=== PATIENT | female | born 1950 | race American Indian/Alaskan Native ===

== ENCOUNTER 2019-02-15 09:34 | Day surgery (SDC) | payer MEDICARE ==
[~2019-02-15 09:34] MED LIST: TETRACAINE 0.5% OS PRN
[2019-02-15] MEDS: VIGAMOX OS SCH ×3 (10:10→10:22)
[2019-02-15] MEDS: AK-Dilate OS SCH ×3 (10:10→10:22)
[2019-02-15] MEDS: MYDRIACYL OS SCH ×3 (10:10→10:22)
--- NOTE | 2019-02-15 10:21 | Anesthesia Consultation ---
Anesthesia Consult and Med Hx Date of service: 02/15/19 - Airway Anesthetic Teeth Evaluation: Dentures ROM Head & Neck: Adequate Mental/Hyoid Distance: Adequate Mallampati Class: Class II Intubation Access Assessment: Probably Good - Pulmonary Exam CTA: Yes - Cardiac Exam Cardiac Exam: RRR - Pre-Operative Health Status ASA Pre-Surgery Classification: ASA3 Proposed Anesthetic Plan: MAC - Pulmonary Hx Smoking: Yes (Former) Hx Respiratory Symptoms: No Hx Sleep Apnea: No - Cardiovascular System Hx Hypertension: Yes (took antihypertensive this morning) Hx Heart Attack/AMI: Yes (in ) Hx Percutaneous Transluminal Coronary Angioplasty (PTCA): No Hx Cardia Arrhythmia: No - Central Nervous System Hx Seizures: No CVA: No Hx Psychiatric Problems: No - Gastrointestinal Hx Gastroesophageal Reflux Disease: No - Endocrine Hx Renal Disease: Yes (CKD3) Hx Liver Disease: No Hx Non-Insulin Dependent Diabetes: Yes Hx Thyroid Disease: No - Other Systems Hx Obesity: Yes - Additional Comments Anesthesia Medical History Comments: Reports that she was told she "stopped breathing" during surgery under [place] in . She received this report from shaila lenz but was not told this by the surgeon/anesthesiologist. No anesthetics since then.
--- NOTE | 2019-02-15 10:21 | Anesthesia Day of Surgery ---
Anesthesia Day of Surgery - Day of Surgery Patient Examined: Yes Patient H&P Reviewed: Yes Patient is NPO: Yes
[2019-02-15] MEDS ORDERED: VERSED ONE (10:23)
[2019-02-15] MEDS ORDERED: SUBLIMAZE ONE (10:23)
[2019-02-15] MEDS ORDERED: DIAMOX PO NR (11:17)
--- NOTE | 2019-02-15 11:18 | Operative Report ---
Operative Report Operative Report: PATIENT'S NAME: DATE OF : DATE OF SURGERY: 02/15/2019 PREOPERATIVE DIAGNOSIS: Cataract left eye POSTOPERATIVE DIAGNOSIS: Same OPERATIVE PROCEDURE: Phacoemulsification with intraocular lens implantation, left eye SURGEON: Jess Hernandes M.D. CLIENT SERVICES VICE PRESIDENT SURGEON: Dayron Lens: MX60E 21.5 D ANESTHESIA: Monitored anesthesia care in combination with topical and intracameral anesthesia because of the established specific risk of reflux, arrhythmias, or anxiety attacks associated with ocular manipulation, as well as the difficulty of the operations inspector to manage such potentially catastrophic events while simultaneously attempting to complete the surgical procedure and was deemed necessary for the patient's safety to have an Customer Experience Consultant present during the procedure whenever possible. An Customer Experience Consultant was utilized to regulate the intravenous sedation of the patient so the patient was cooperative yet not asleep in order for the patient to successfully maintain fixation of the eye on the operating light of the microscope. COMPLICATIONS: No surgical complications No blood loss. ALLERGIES: No known drug allergies PROGNOSIS: Excellent INDICATIONS FOR SURGERY: The patient is undergoing surgery in the hopes of eliminating or improving these visual difficulties. PROCEDURE: After arriving at the surgery center, the patient was given topical anesthetic and dilating drops, as noted in the record. The patient was then taken into the operating room and given more anesthetic drops. The eyelids, lashes, and lid margins were scrubbed with Betadine solution, and the patient was draped. The Nurse Customer Experience Consultant administered IV sedation and monitored the patient during the procedure. The eye was then fixated with a 0.12, and a stab incision was made in the peripheral clear cornea into the anterior chamber. This was made on my left side. Viscoelastic was next used to fill the anterior chamber. The eye was once again fixated with the 0.12 forceps and a keratome was used make an incision in clear cornea peripherally on my right hand side temporally. The capsule forceps were used to open the central anterior capsule and then make a continuous round capsulotomy. Hydrodissection was carried out utilizing a cannula and balanced salt solution to delineate the cortical material from the capsule and the nucleus from the cortical material. The phaco tip was introduced into the eye and used to remove the anterior cortical material in the area of the capsulotomy. Then the phaco tip was buried into the nucleus, and a chopping instrument was introduced into the eye and used to provide countertraction in the nucleus between this instrument and the phaco tip fracturing the nucleus. This procedure was repeated multiple times, providing multiple small segments of the lens, and then the phaco tip was used to remove each of these segments. An I/A tip was then used to remove the remaining cortex. The anterior chamber was refilled with viscoelastic. An one-piece, acrylic intraocular lens was then placed into an inserting cartridge. The tip of the inserting cartridge was introduced into the keratome incision and into the anterior chamber. The implant was gently advanced through the cartridge and into the eye, where it unfolded, and both haptics were placed in the capsular bag, where it centered nicely and appeared to be well fixated. After placement of the intraocular lens, the I~and~A handpiece was placed back into the eye and used to remove the viscoelastic, including viscoelastic that was behind the optic of the intraocular lens. The anterior chamber was then filled with balanced salt solution, and hydration of the wound was used to cause swelling of the wound and more appropriate watertight closure. When the wound was found to be firm, the patient was asked to comment on how bright the light was. If there was no light perception at all or if the light was substantially dimmer than during the rest of the surgery, the amount of fluid in the eye was decompressed to lower the intraocular pressure until the patient could see the bright light again. This was done to avoid any damage or decreased blood flow to the optic nerve. MEDICATIONS APPLIED AT END OF SURGERY: One drop of Pred Forte and Vigamox The patient was given a shield to wear at night and was instructed not to rub or push on the eye. DISCHARGE SUMMARY: The patient was released in stable condition. The patient and those with the patient were given a written sheet of postoperative instructions and counseling on any abnormal laboratory studies. The patient is to see us tomorrow for follow-up in the office and is to call immediately for any difficulties. Jess Hernandes M.D. Date
--- NOTE | 2019-02-15 11:19 | Short Stay Summary ---
Short Stay Documentation Date of service: 02/15/19 - History H&P: obtained from office - Allergies and Medications Current Medications: Allergies No Known Allergies Allergy (Unverified 02/13/19 15:49) Home Medications Medication Instructions Recorded Confirmed Last Taken Type Allopurinol [Zyloprim] 100 mg PO DAILY 02/13/19 02/13/19 Unknown History Aspirin [Adult Aspirin] 81 mg PO DAILY 02/13/19 02/13/19 Unknown History Atenolol [Tenormin] 50 mg PO DAILY 02/13/19 02/13/19 Unknown History Valsartan/Hydrochlorothiazide 1 each PO DAILY 02/13/19 02/13/19 Unknown History [Valsartan-Hctz 160-25 mg Tab] metFORMIN [Glucophage] 500 mg PO BID 02/13/19 02/13/19 Unknown History Active Medications Acetazolamide (Diamox) 500 mg PO ONCE ONE Stop: 02/15/19 11:18 Moxifloxacin HCl (Vigamox) 1 drops OS Q5M ISMAEL Phenylephrine HCl (Ak-Dilate) 1 drops OS Q5M ISMAEL Prednisolone Acetate (Pred Forte 1%) 1 drops OS ONCE NR Tetracaine HCl (Tetracaine 0.5%) 1 drops OS Q5M PRN PRN Reason: Anesthesia Tropicamide (Mydriacyl) 1 drops OS Q5M ISMAEL - Brief post op/procedure progress note Date of procedure: 02/15/19 Pre-op diagnosis: left cataract Post-op diagnosis: same Procedure: Phacoemulsification with intraocular lens insertion left eye Anesthesia: MAC, local Estimated blood loss: none Pathology: none Condition: stable - Disposition Condition at discharge: Good Disposition: DC-01 TO HOME OR SELFCARE - Discharge Diagnoses (1) Combined forms of age-related cataract of left eye Status: Resolved Short Stay Discharge Plan Follow up with: BELLA HARRISON [Other] - 7 Days
[2019-02-15] MEDS ORDERED: NACL 0.9% 500 ML 500 ML ONE (11:30)
[2019-02-15] MEDS ORDERED: APRESOLINE ONE (11:36)
[2019-02-15] MEDS ORDERED: ZOFRAN ONE (11:38)
[2019-02-15] MEDS ORDERED: APRESOLINE IV ONE ×2 (11:53→12:50)
[2019-02-15] MEDS ORDERED: PRED FORTE 1% OS NR (12:00)
[2019-02-15] MEDS ORDERED: NORMODYNE IV PRN (12:07)
[2019-02-15] MEDS ORDERED: REGLAN ONE (12:09)
[2019-02-15] MEDS ORDERED: REGLAN IV ONE (12:09)
[2019-02-15] MEDS ORDERED: ZOFRAN IV ONE (12:46)
--- NOTE | 2019-02-15 13:29 | Post Anesthesia Evaluation ---
- Post Anesthesia Evaluation Patient Participated: Yes Airway Patent: Yes Stable Respiratory Function: Yes Nausea/Vomiting: Yes (improved with IV antiemetics) Temp > 96.8F: Yes Pain Manageable: Yes Adequeate Hydration: Yes Anesthesia Complications: No
[2019-02-15 15:51] VITALS: BP 164/79
== END 2019-02-15 13:55 | disposition home or self-care (01) ==
LOC: OR 09:34
DX: E11.36 Type 2 diabetes mellitus with diabetic cataract (principal); H25.812 Combined forms of age-related cataract, left eye; I12.0 Hypertensive chronic kidney disease with stage 5 chronic kidney disease or end stage renal disease; N18.3 Chronic kidney disease, stage 3 (moderate); E11.22 Type 2 diabetes mellitus with diabetic chronic kidney disease; E66.9 Obesity, unspecified; Z79.84 Long term (current) use of oral hypoglycemic drugs; Z79.82 Long term (current) use of aspirin; Z79.899 Other long term (current) drug therapy; Z87.891 Personal history of nicotine dependence; Z98.41 Cataract extraction status, right eye; Z68.36 Body mass index [BMI] 36.0-36.9, adult; Z90.710 Acquired absence of both cervix and uterus; Z87.442 Personal history of urinary calculi
CPT/HCPCS: 66984; 82962; J0360; J2250; J2405; J2765; J3010; J7040; V2632

== ENCOUNTER 2019-03-01 05:55 | Day surgery (SDC) | payer MEDICARE ==
[2019-03-01] MEDS ORDERED: TETRACAINE 0.5% OD SCH (06:00)
[2019-03-01] MEDS: VIGAMOX OD SCH ×3 (06:50→07:00)
[2019-03-01] MEDS: AK-Dilate OD SCH ×3 (06:50→07:00)
[2019-03-01] MEDS: MYDRIACYL OD SCH ×3 (06:50→07:00)
[2019-03-01] MEDS ORDERED: MORPHINE ONE (07:12)
[2019-03-01] MEDS ORDERED: SUBLIMAZE ONE (07:12)
[2019-03-01] MEDS ORDERED: VERSED ONE (07:13)
--- NOTE | 2019-03-01 07:40 | Anesthesia Consultation ---
Anesthesia Consult and Med Hx Date of service: 03/01/19 - Airway Anesthetic Teeth Evaluation: Partials ROM Head & Neck: Adequate Mental/Hyoid Distance: Adequate Mallampati Class: Class III Intubation Access Assessment: Possibly Difficult - Pulmonary Exam CTA: Yes - Cardiac Exam Cardiac Exam: RRR - Pre-Operative Health Status ASA Pre-Surgery Classification: ASA3 Proposed Anesthetic Plan: MAC - Pulmonary Hx Smoking: Yes (Former) Hx Respiratory Symptoms: No - Cardiovascular System Hx Hypertension: Yes (took atenolol today) Hx Heart Attack/AMI: Yes (in 1990s) Hx Cardia Arrhythmia: No Hx Heart Murmur: Yes - Central Nervous System CVA: No Hx Psychiatric Problems: No - Gastrointestinal Hx Gastroesophageal Reflux Disease: No - Endocrine Hx Renal Disease: Yes (CKD3) Hx Non-Insulin Dependent Diabetes: Yes Hx Thyroid Disease: No - Other Systems Hx Cancer: No Hx Obesity: Yes - Additional Comments Anesthesia Medical History Comments: PONV with previous cataract surgery
--- NOTE | 2019-03-01 07:40 | Anesthesia Day of Surgery ---
Anesthesia Day of Surgery - Day of Surgery Patient Examined: Yes Patient H&P Reviewed: Yes Patient is NPO: Yes Beta Blockers: Yes
[2019-03-01] MEDS ORDERED: DIAMOX PO NR (08:14)
[2019-03-01] MEDS ORDERED: PRED FORTE 1% OD NR (08:14)
--- NOTE | 2019-03-01 08:15 | Operative Report ---
Operative Report Operative Report: PATIENT'S NAME: DATE OF : DATE OF SURGERY: 03/01/2019 PREOPERATIVE DIAGNOSIS: Cataract right eye POSTOPERATIVE DIAGNOSIS: Same OPERATIVE PROCEDURE: Phacoemulsification with intraocular lens implantation, right eye SURGEON: Jess Hernandes M.D. STAFF MECHANICAL ENGINEER SURGEON: Dayron Lens: MX60E 21.5 D ANESTHESIA: Monitored anesthesia care in combination with topical and intracameral anesthesia because of the established specific risk of reflux, arrhythmias, or anxiety attacks associated with ocular manipulation, as well as the difficulty of the fishing manager to manage such potentially catastrophic events while simultaneously attempting to complete the surgical procedure and was deemed necessary for the patient's safety to have an Material Analyst present during the procedure whenever possible. An Material Analyst was utilized to regulate the intravenous sedation of the patient so the patient was cooperative yet not asleep in order for the patient to successfully maintain fixation of the eye on the operating light of the microscope. COMPLICATIONS: No surgical complications No blood loss. ALLERGIES: No known drug allergies PROGNOSIS: Excellent INDICATIONS FOR SURGERY: The patient is undergoing surgery in the hopes of eliminating or improving these visual difficulties. PROCEDURE: After arriving at the surgery center, the patient was given topical anesthetic and dilating drops, as noted in the record. The patient was then taken into the operating room and given more anesthetic drops. The eyelids, lashes, and lid margins were scrubbed with Betadine solution, and the patient was draped. The Nurse Material Analyst administered IV sedation and monitored the patient during the procedure. The eye was then fixated with a 0.12, and a stab incision was made in the peripheral clear cornea into the anterior chamber. This was made on my left side. Viscoelastic was next used to fill the anterior chamber. The eye was once again fixated with the 0.12 forceps and a keratome was used make an incision in clear cornea peripherally on my right hand side temporally. The capsule forceps were used to open the central anterior capsule and then make a continuous round capsulotomy. Hydrodissection was carried out utilizing a cannula and balanced salt solution to delineate the cortical material from the capsule and the nucleus from the cortical material. The phaco tip was introduced into the eye and used to remove the anterior cortical material in the area of the capsulotomy. Then the phaco tip was buried into the nucleus, and a chopping instrument was introduced into the eye and used to provide countertraction in the nucleus between this instrument and the phaco tip fracturing the nucleus. This procedure was repeated multiple times, providing multiple small segments of the lens, and then the phaco tip was used to remove each of these segments. An I/A tip was then used to remove the remaining cortex. The anterior chamber was refilled with viscoelastic. An one-piece, acrylic intraocular lens was then placed into an inserting cartridge. The tip of the inserting cartridge was introduced into the keratome incision and into the anterior chamber. The implant was gently advanced through the cartridge and into the eye, where it unfolded, and both haptics were placed in the capsular bag, where it centered nicely and appeared to be well fixated. After placement of the intraocular lens, the I~and~A handpiece was placed back into the eye and used to remove the viscoelastic, including viscoelastic that was behind the optic of the intraocular lens. The anterior chamber was then filled with balanced salt solution, and hydration of the wound was used to cause swelling of the wound and more appropriate watertight closure. When the wound was found to be firm, the patient was asked to comment on how bright the light was. If there was no light perception at all or if the light was substantially dimmer than during the rest of the surgery, the amount of fluid in the eye was decompressed to lower the intraocular pressure until the patient could see the b right light again. This was done to avoid any damage or decreased blood flow to the optic nerve. MEDICATIONS APPLIED AT END OF SURGERY: One drop of Pred Forte and Vigamox The patient was given a shield to wear at night and was instructed not to rub or push on the eye. DISCHARGE SUMMARY: The patient was released in stable condition. The patient and those with the patient were given a written sheet of postoperative instructions and counseling on any abnormal laboratory studies. The patient is to see us tomorrow for follow-up in the office and is to call immediately for any difficulties. Jess Hernandes M.D. Date
--- NOTE | 2019-03-01 08:16 | Short Stay Summary ---
Short Stay Documentation Date of service: 03/01/19 - History H&P: obtained from office - Allergies and Medications Current Medications: Allergies No Known Allergies Allergy (Unverified 02/27/19 18:06) Home Medications Medication Instructions Recorded Confirmed Last Taken Type Allopurinol [Zyloprim] 100 mg PO DAILY 02/13/19 03/01/19 02/28/19 08:00 History Aspirin [Adult Aspirin] 81 mg PO DAILY 02/13/19 03/01/19 02/28/19 08:00 History Atenolol [Tenormin] 50 mg PO DAILY 02/13/19 03/01/19 03/01/19 05:00 History Valsartan/Hydrochlorothiazide 1 each PO DAILY 02/13/19 03/01/19 02/28/19 08:00 History [Valsartan-Hctz 160-25 mg Tab] metFORMIN [Glucophage] 500 mg PO BID 02/13/19 03/01/19 02/28/19 08:00 History Active Medications Acetazolamide (Diamox) 500 mg PO ONCE ONE Stop: 03/01/19 08:15 Moxifloxacin HCl (Vigamox) 1 drops OD Q5MIN ISMAEL Stop: 03/01/19 15:00 Last Admin: 03/01/19 06:50 Dose: 1 drops Documented by: Phenylephrine HCl (Ak-Dilate) 1 drops OD Q5MIN ISMAEL Stop: 03/01/19 15:00 Last Admin: 03/01/19 06:50 Dose: 1 drops Documented by: Prednisolone Acetate (Pred Forte 1%) 1 drops OD ONCE ONE Stop: 03/01/19 08:15 Tetracaine HCl (Tetracaine 0.5%) 1 drops OD Q5M ISMAEL Stop: 03/01/19 15:00 Last Admin: 03/01/19 06:50 Dose: 1 drops Documented by: Tropicamide (Mydriacyl) 1 drops OD Q5MIN ISMAEL Stop: 03/01/19 15:00 Last Admin: 03/01/19 06:50 Dose: 1 drops Documented by: - Brief post op/procedure progress note Date of procedure: 03/01/19 Pre-op diagnosis: right cataract Post-op diagnosis: same Procedure: Phacoemulsification with intraocular lens insertion right eye Anesthesia: MAC Surgeon: DHAVAL ZHAO Estimated blood loss: none Pathology: none Condition: stable - Disposition Condition at discharge: Good Disposition: DC-01 TO HOME OR SELFCARE - Discharge Diagnoses (1) Cortical age-related cataract of right eye Status: Resolved Short Stay Discharge Plan Follow up with: BELLA DENIS [Other] - 7 Days
[2019-03-01] MEDS ORDERED: NORMODYNE IV PRN (08:19)
[2019-03-01] MEDS ORDERED: LACTATED RINGERS 1,000 ML ONE (08:33)
[2019-03-01] MEDS: APRESOLINE IV PRN ×2 (08:37→08:57)
[2019-03-01] MEDS ORDERED: ZOFRAN ONE (09:33)
[2019-03-01] MEDS ORDERED: ZOFRAN IV ONE (09:34)
[2019-03-01 11:36] VITALS: BP 161/78
--- NOTE | 2019-03-01 16:14 | Post Anesthesia Evaluation ---
- Post Anesthesia Evaluation Patient Participated: Yes Airway Patent: Yes Stable Respiratory Function: Yes Nausea/Vomiting: No Temp > 96.8F: Yes Pain Manageable: Yes Adequeate Hydration: Yes Anesthesia Complications: No
== END 2019-03-01 11:20 | disposition home or self-care (01) ==
LOC: OR 05:55
DX: H25.011 Cortical age-related cataract, right eye (principal); E11.36 Type 2 diabetes mellitus with diabetic cataract; I12.9 Hypertensive chronic kidney disease with stage 1 through stage 4 chronic kidney disease, or unspecified chronic kidney disease; E11.22 Type 2 diabetes mellitus with diabetic chronic kidney disease; N18.3 Chronic kidney disease, stage 3 (moderate); M19.90 Unspecified osteoarthritis, unspecified site; Z79.899 Other long term (current) drug therapy; Z79.84 Long term (current) use of oral hypoglycemic drugs; E66.9 Obesity, unspecified; Z79.82 Long term (current) use of aspirin; Z87.891 Personal history of nicotine dependence; Z68.36 Body mass index [BMI] 36.0-36.9, adult; Z87.442 Personal history of urinary calculi; Z90.710 Acquired absence of both cervix and uterus; Z87.440 Personal history of urinary (tract) infections
CPT/HCPCS: 66984; 82962; J0360; J2250; J2405; J3010; J7120; J2270; V2632